=== PATIENT | female | born 1945 | race African-American/Black ===

== ENCOUNTER 2017-01-18 07:32 | Emergency (ER) | payer OTHER ==
[2017-01-18 07:42] VITALS: BP 116/64; PULSE 59; TEMP 97.8; BMI 36.9
--- NOTE | 2017-01-18 08:29 | PDOC ---
History of Present Illness - General Chief Complaint: Injury Stated Complaint: FALL 3 weeks ago, Arm pain Time Seen by Provider: 01/18/17 08:13 History Source: Patient Exam Limitations: No Limitations - History of Present Illness Initial Comments: 01/18/17 09:00 Chief complaint: Right shoulder and upper arm pain after falling 3 weeks ago out of bed History of present illness: Patient is a 71-year-old female with a history of coronary artery disease, [facility] CABG and stent placement 2012, hyperlipidemia, hypertension.Pt. is here today complaining of pain and decreased range of motion from left shoulder after falling out of bed 3 weeks ago onto her left side hitting her left upper arm with her arm flat against her body not out of reach. She reports the pain when trying to use her right arm from shoulder is a 10+. Patient has been taking acetaminophen for pain. Patient reports that at times when lying in her bed she feels pain radiating from her right shoulder down her right arm. Patient denies any loss of consciousness or or hitting her head or any other injuries after falling out of bed 3 weeks ago. Patient reports seeing her primary care provider who told her to do some exercises to improve function of her right arm at shoulder. Occurred: reports: other (3 weeks ) Pain Location: reports: upper extremity (left shoulder, upper left arm ) Method of Injury: Yes: fall (out of bed 3 weeks ago) Modifying Factors: improves with: immobilization Associated Symptoms (Fall): denies symptoms Past History - Past Medical History Allergies/Adverse Reactions: Allergies Allergy/AdvReac Type Severity Reaction Status Date / Time azithromycin [From Zithromax] Allergy Verified 01/18/17 07:42 levofloxacin [From Levaquin] Allergy Verified 01/18/17 07:42 Home Medications: Ambulatory Orders Chlorthalidone [Hygroton -] 50 mg PO DAILY 01/18/17 Clopidogrel Bisulfate [Plavix -] 75 mg PO DAILY 01/18/17 Hydralazine HCl 50 mg PO ASDIR 01/18/17 Naproxen [Naprosyn -] 500 mg PO BID 01/18/17 Triamterene/Hydrochlorothiazid [Dyazide 37.5-25 Capsule] 37.5 mg PO ASDIR Cardiac Disorders: Yes (bypass, 2 stents) HTN: Yes Hypercholesterolemia: Yes - Surgical History Cardiac Surgery: Yes (stents, bypass) - Psycho/Social/Smoking Cessation Hx Suicidal Ideation: No Smoking History: Never smoked Information on smoking cessation initiated: No Hx Alcohol Use: No Drug/Substance Use Hx: No Substance Use Type: None Review of Systems - Review of Systems Able to Perform ROS?: Yes Constitutional: No: Symptoms Reported HEENTM: No: Symptoms Reported Respiratory: No: Symptoms reported Cardiac (ROS): No: Symptoms Reported ABD/GI: No: Symptoms Reported : No: Symptoms Reported Musculoskeletal: Yes: Joint Pain (right shoulder/upper arm n), Joint Swelling ( minimal swelling right upper arm ), Other (decreased range of motion from left shoulder) Integumentary: No: Symptoms Reported (]) Neurological: No: Symptoms reported *Physical Exam - Vital Signs Last Vital Signs Temp Pulse Resp BP Pulse Ox 97.8 F 59 L 18 116/64 99 01/18/17 07:40 01/18/17 07:40 01/18/17 07:40 01/18/17 07:40 01/18/17 07:40 - Physical Exam General Appearance: Yes: Appropriately Dressed Neck: negative: Tender, Decreased range of motion, Rigidity, Tender lateral, Tender midline Respiratory/Chest: positive: Lungs Clear, Normal Breath Sounds. negative: Chest Tender, Respiratory Distress Cardiovascular: positive: Regular Rhythm, Regular Rate, S1, S2 Comments:: 01/18/17 08:59 radial pulse 4 + right Musculoskeletal: positive: Normal Inspection. negative: CVA Tenderness, CVA Tenderness (R), CVA Tenderness (L), Vertebral Tenderness Extremity: positive: Normal Capillary Refill, Normal Inspection, Tender (rt. upper lateral arm ), Swelling (minimal rt. upper arm ). negative: Normal Range of Motion (from rt. shoulder in all directions) Integumentary: positive: Normal Color Neurologic: positive: Alert, Normal Response, Respond to painful stimul (right hand, forearm, upper arm ). negative: Motor Strength 5/5 (rt. shoulder motor decreased ), Numbness, Sensory Deficit Procedures - Consent Consent obtained: From Patient - Splinting Splint Location: Right: Forearm Pre-Proc Neuro Vasc Exam: normal Hand-Made Type: shoulder immoblizer right Post-Proc Neuro Vasc Exam: normal Jah Bandage: no Sling: No Complications: No Medical Decision Making - Medical Decision Making 01/18/17 09:03 Patient is a 71-year-old female with a history of coronary artery disease, [facility] CABG and stent placement 2012, hyperlipidemia, hypertension.Pt. is here today complaining of pain and decreased range of motion from left shoulder after falling out of bed 3 weeks ago onto her left side hitting her left upper arm with her arm flat against her body not out of reach. She reports the pain when trying to use her right arm from shoulder is a 10+. Patient has been taking acetaminophen for pain. Patient reports that at times when lying in her bed she feels pain radiating from her right shoulder down her right arm. Patient denies any loss of consciousness or or hitting her head or any other injuries after falling out of bed 3 weeks ago. Patient reports seeing her primary care provider who told her to do some exercises to improve function of her right arm at shoulder. Fall Right shoulder pain with decreased range of motion PLAN: xray shoulder rt. degeenerative changes, no fracture or dislocation xray rt. humerous no fracture noted shoulder immobilizer rt. applied feels better will refer to ortho for futher nitishal 01/18/17 09:39 *DC/Admit/Observation/Transfer Diagnosis at time of Disposition: Injury, shoulder and upper arm Qualifiers: Encounter type: initial encounter Laterality: right Qualified Code(s): S49.91XA - Unspecified injury of right shoulder and upper arm, initial encounter - Discharge Dispostion Disposition: HOME Condition at time of disposition: Stable - Referrals Referrals: Mor Ndiaye MD [Primary Care Provider] - Piter Garcia MD [Staff Physician] - - Patient Instructions Additional Instructions: Follow-up with orthopedist for further evaluation as soon as possible You may wear shoulder immobilizer during the day take off at night Continue do do shoulder exercises as your primary care provider had instructed to Return to emergency room if symptoms worsen or new symptoms develop Take acetaminophen as needed as directed by sheet rock nailer for pain Patient voiced understanding of discharge instructions and all questions were answered
== END 2017-01-18 09:44 | disposition home or self-care (01) ==
LOC: JERFT 07:32
PROC: 2W38XYZ Immobilization of Right Upper Extremity using Other Device (ICD-10-PCS; principal; 2017-01-18)
DX: S49.81XA Other specified injuries of right shoulder and upper arm, initial encounter (principal); W06.XXXA Fall from bed, initial encounter; Y93.89 Activity, other specified; Y92.032 Bedroom in apartment as the place of occurrence of the external cause; Y99.8 Other external cause status; I25.10 Atherosclerotic heart disease of native coronary artery without angina pectoris; I10 Essential (primary) hypertension; Z95.1 Presence of aortocoronary bypass graft; Z95.5 Presence of coronary angioplasty implant and graft; E78.5 Hyperlipidemia, unspecified
CPT/HCPCS: 73030-TC-RT; 73060-TC-RT; 99281-25

== ENCOUNTER → 2019-07-16 | Day surgery (SDC) | payer OTHER, BC ==
--- NOTE | 2019-07-17 09:06 | OP ---
DATE OF OPERATION: 07/16/2019 PREOPERATIVE DIAGNOSIS: Abnormal left mammography. POSTOPERATIVE DIAGNOSIS: Abnormal left mammography. PROCEDURE: Left stereotactic needle biopsy with clips. SURGEON: Isabel Kasper MD ANESTHESIA: Local. COMPLICATIONS: None. This was a sterile procedure. INDICATION: Patient presented with a screening mammography that noted a new cluster of microcalcifications in the upper outer left breast. My recommendation was a needle biopsy. The procedure was discussed with all the questions answered. PROCEDURE IN DETAIL: Patient brought to [facility] in [place]. Laid prone on the [place] table. Using the cranial approach the calcifications in the upper left breast were identified. A sterile prep obtained. A target was chosen. There was a positive stroke margin. Using Betadine and 1% lidocaine a 9-gauge Suros device was used to take several cores from this area. Cores showed calcifications within them. These were handled with the usual calcification protocol. A T-shaped clip was deployed in the area. Hemostasis was assured with direct pressure. Steri-Strips were used to close the incision. She tolerated the procedure well. Left the breast imaging center in good condition. ISABEL KASPER M.D. [id number]
--- NOTE | 2019-07-17 15:46 | PATH ---
Surgical Pathology Report Patient Name: YONI PRINCE Med. Rec. #: [id number] /Age/Gender: 1945 (Age: 73) / F Account: [id number] Location: [facility] Taken: 07/16/2019 Received: 07/16/2019 Reported: 07/17/2019 Physicians: Isabel Kumar M.D. Specimen(s) Received A: LEFT BREAST SPECIMEN - WITH CALCIFICATIONS B: LEFT BREAST SPECIMEN - WITHOUT CALCIFICATIONS Clinical History Nonpalpable lesion Postoperative diagnosis: Microcalcification, suspicious Final Diagnosis A. BREAST, LEFT, WITH CALCIFICATIONS, STEREOTACTIC CORE BIOPSY: BENIGN BREAST PARENCHYMA WITH FIBROADENOMATOID CHANGES AND ASSOCIATED MICROCALCIFICATIONS. B. BREAST, LEFT, WITHOUT CALCIFICATIONS, STEREOTACTIC CORE BIOPSY: BENIGN BREAST PARENCHYMA. Electronically Signed Grace Savage M.D. Gross Description A. Received in formalin labeled "left breast with calcifications," is a 2.4 x 1.9 x 0.3 cm aggregate of multiple valenzuela-yellow, irregular to cylindrical portions of fibroadipose tissue. The formalin is filtered and the specimen is entirely submitted in one cassette. B. Received in formalin labeled "left breast without calcifications," is a 2.2 x 1.8 x 0.3 cm aggregate of multiple valenzuela-yellow, irregular to cylindrical portions of fibroadipose tissue. The formalin is filtered and the specimen is entirely submitted in one cassette. Time to formalin fixation: 5 minutes Total formalin fixation time: Approximately 6 hours. /07/16/2019 saudi/07/16/2019
== END | disposition home or self-care (01) ==
LOC: FMAMMOTONE 09:57
PROVIDERS: ATTEND Surgery
PROC: 0HBU3ZX Excision of Left Breast, Percutaneous Approach, Diagnostic (ICD-10-PCS; principal; 2019-07-16)
DX: R92.1 Mammographic calcification found on diagnostic imaging of breast (principal); N64.89 Other specified disorders of breast
CPT/HCPCS: 19081; 76098-TC-FY; 87899; A4648

== ENCOUNTER 2021-04-10 08:45 | Emergency (ER) | payer OTHER, BC ==
[2021-04-10 08:52] VITALS: BMI 33.3
[2021-04-10] MEDS ORDERED: ACETAMINOPHEN 1000 MG/100 ML VIAL (NON FORMULARY) IVPB ONE (10:22)
[2021-04-10] MEDS ORDERED: METHOCARBAMOL 500 MG TABLET PO ONE (10:22)
[2021-04-10] MEDS ORDERED: ACETAMINOPHEN INJECTION 100 ML IVPB ONE (10:27)
[2021-04-10] MEDS ORDERED: METHOCARBAMOL 500 MG TABLET ONE (10:27)
[2021-04-10 10:34] LABS: BASO % 0.6 % (0-2.0); EOS % 3.8 % (0-4.5); HEMATOCRIT 28.8 % (32.4-45.2); HEMOGLOBIN 9.4 GM/dL (10.7-15.3); LYMPH % 25.2 % (8-40); MCH 26.4 pg (25.7-33.7); MCHC 32.5 g/dl (32.0-36.0); MEAN CELL VOLUME 81.2 fl (80-96); MEAN PLT VOLUME 10.4 fl (7.5-11.1); MONO % 8.9 % (3.8-10.2); NEUT % 61.5 % (42.8-82.8); PLATELET COUNT 145 10^3/uL (134-434); RBC 3.55 M/mm3 (3.60-5.2); RDW 17.4 % (11.6-15.6)
[2021-04-10 10:54] LABS: CALCIUM 7.9 mg/dL (8.5-10.1)
[2021-04-10 10:55] LABS: BLOOD UREA NITROGEN 26.7 mg/dL (7-18)
[2021-04-10 10:58] LABS: CREATININE 1.3 mg/dL (0.55-1.3)
[2021-04-10 10:59] LABS: BILIRUBIN,TOTAL 0.4 mg/dL (0.2-1); TOT PROT 6.8 g/dl (6.4-8.2)
[2021-04-10 12:35] LABS: EPI CELLS 4 /uL (0-25.1); HYALINE CASTS 0 /uL (0-3.1); URINE APPEARANCE CLEAR; URINE BACTERIA 2940 /uL (0-1359); URINE BILIRUBIN NEGATIVE (NEGATIVE); URINE COLOR YELLOW; URINE GLUCOSE (UA) NEGATIVE (NEGATIVE); URINE KETONE NEGATIVE (NEGATIVE); URINE LEUK ESTERASE 1+ (NEGATIVE); URINE NITRITE NEGATIVE (NEGATIVE); URINE PROTEIN NEGATIVE (NEGATIVE); URINE UROBILINOGEN 0.2 mg/dL (0.2-1.0); URINE WBC 18 /uL (0-25.8)
[2021-04-10] MEDS ORDERED: CEFTRIAXONE 1,000 MG in DEXTROSE 5%-WATER - 50 ML IVPB ONE (12:45)
[2021-04-10] MEDS ORDERED: CEFTRIAXONE 1 GM/50 ML BAG ONE (12:52)
[2021-04-10 16:30] LABS: URINE RBC 122 /uL (0-23.9)
[2021-04-10] MEDS ORDERED: LACTATED RINGERS SOLUTION 1,000 ML/1,000 ML INFUS.BAG IV SCH (17:15)
[2021-04-10 18:49] VITALS: BP 148/73; PULSE 57; TEMP 97.8
== END 2021-04-10 18:59 | disposition short-term general hospital (02) ==
LOC: JER 08:45
PROC: 3E033GC Introduction of Other Therapeutic Substance into Peripheral Vein, Percutaneous Approach (ICD-10-PCS; principal; 2021-04-10)
DX: R10.9 Unspecified abdominal pain (principal); I51.3 Intracardiac thrombosis, not elsewhere classified; K59.00 Constipation, unspecified; R79.89 Other specified abnormal findings of blood chemistry
CPT/HCPCS: 36415; 71275-TC; 74019-TC-FY; 74174-TC; 76775-TC; 80053; 81003; 82550; 83690; 84484; 85025; 87086; 87186; 93005; 93010; 96361; 96365; 96375; 99285-25; C9803; J0131; Q9967; U0003; U0005

== ENCOUNTER 2024-03-01 11:44 | Emergency (ER) | payer OTHER, BC ==
[2024-03-01 12:01] VITALS: RESP 18; TEMP 98.2; BMI 27.4
[2024-03-01 13:37] LABS: BASO % 0.7 % (0-2.0); EOS % 1.8 % (0-4.5); HEMATOCRIT 25.7 % (32.4-45.2); HEMOGLOBIN 8.2 GM/dL (10.7-15.3); LYMPH % 20.4 % (8-40); MCH 25.1 pg (25.7-33.7); MEAN CELL VOLUME 78.5 fl (80-96); MEAN PLT VOLUME 8.5 fl (7.5-11.1); MONO % 10.9 % (3.8-10.2); NEUT % 66.2 % (42.8-82.8); PLATELET COUNT 265 10^3/uL (134-434); RBC 3.27 M/mm3 (3.60-5.2); RDW 18.4 % (11.6-15.6); WHITE BLOOD COUNT 3.8 K/mm3 (4.0-10.0)
[2024-03-01 13:45] LABS: INR 1.67 (0.83-1.09); PROTHROMBIN TIME (PATIENT) 18.9 SEC (9.7-13.0)
[2024-03-01 13:48] LABS: ACTIVATED PTT 36.2 SECONDS (25.2-36.5)
[2024-03-01 14:03] LABS: POTASSIUM 4.4 mmol/L (3.5-5.1)
[2024-03-01 14:05] LABS: ALBUMIN 2.5 g/dl (3.4-5.0); BLOOD UREA NITROGEN 28.2 mg/dL (7-18); CALCIUM 8.7 mg/dL (8.5-10.1)
[2024-03-01 14:09] LABS: CREATININE 1.3 mg/dL (0.55-1.3)
[2024-03-01 14:10] LABS: BILIRUBIN,TOTAL 0.5 mg/dL (0.2-1)
[2024-03-01 21:12] VITALS: BP 135/72; PULSE 75
== END 2024-03-01 22:23 | disposition home or self-care (01) ==
LOC: JER 11:44
DX: R51.9 Headache, unspecified (principal); R05.9 Cough, unspecified; R53.1 Weakness; M79.10 Myalgia, unspecified site; Z20.822 Contact with and (suspected) exposure to COVID-19
CPT/HCPCS: 0241U-QW; 36415; 80053; 85025; 85610; 85730; 86850; 86900; 86901; 99283-25

== ENCOUNTER 2024-03-07 17:07 | Inpatient (IN) | payer OTHER, BC ==
[2024-03-07 17:56] VITALS: BMI 27.4
[2024-03-07 20:19] LABS: BASO % 0.9 % (0-2.0); EOS % 1.9 % (0-4.5); HEMATOCRIT 21.9 % (32.4-45.2); LYMPH % 17.3 % (8-40); MCH 24.9 pg (25.7-33.7); MEAN PLT VOLUME 8.5 fl (7.5-11.1); MONO % 9.7 % (3.8-10.2); NEUT % 70.2 % (42.8-82.8); PLATELET COUNT 333 10^3/uL (134-434); RBC 2.82 M/mm3 (3.60-5.2); RDW 18.3 % (11.6-15.6); WHITE BLOOD COUNT 4.5 K/mm3 (4.0-10.0)
[2024-03-07 20:26] LABS: INR 1.66 (0.83-1.09); PROTHROMBIN TIME (PATIENT) 18.8 SEC (9.7-13.0)
[2024-03-07 20:28] LABS: ACTIVATED PTT 32.9 SECONDS (25.2-36.5)
[2024-03-07 20:49] LABS: ALBUMIN 2.6 g/dl (3.4-5.0); CALCIUM 8.6 mg/dL (8.5-10.1)
[2024-03-07 20:50] LABS: BLOOD UREA NITROGEN 39.6 mg/dL (7-18)
[2024-03-07 20:53] LABS: CREATININE 1.6 mg/dL (0.55-1.3)
[2024-03-07 20:54] LABS: BILIRUBIN,TOTAL 0.4 mg/dL (0.2-1); TOT PROT 6.1 g/dl (6.4-8.2)
[2024-03-07 21:41] LABS: HIV INTERPRETATION NEGATIVE (NEGATIVE)
[2024-03-08] MEDS: ACETAMINOPHEN 325 MG TABLET (FP) PO SCH (05:15)
[2024-03-08] MEDS ORDERED: FUROSEMIDE 20 MG TABLET (FP) PO SCH (06:00)
[2024-03-08 08:39] LABS: POTASSIUM 4.7 mmol/L (3.5-5.1)
[2024-03-08 08:40] LABS: BASO % 0.6 % (0-2.0); EOS % 1.6 % (0-4.5); HEMATOCRIT 20.3 % (32.4-45.2); LYMPH % 19.9 % (8-40); MCH 24.7 pg (25.7-33.7); MCHC 31.7 g/dl (32.0-36.0); MEAN CELL VOLUME 78.1 fl (80-96); MEAN PLT VOLUME 8.9 fl (7.5-11.1); MONO % 9.2 % (3.8-10.2); NEUT % 68.7 % (42.8-82.8); PLATELET COUNT 308 10^3/uL (134-434); RDW 18.7 % (11.6-15.6); WHITE BLOOD COUNT 4.7 K/mm3 (4.0-10.0)
[2024-03-08 08:44] LABS: CALCIUM 8.6 mg/dL (8.5-10.1)
[2024-03-08 08:45] LABS: ALBUMIN 2.5 g/dl (3.4-5.0); BLOOD UREA NITROGEN 41.5 mg/dL (7-18); HEMOGLOBIN 6.4 GM/dL (10.7-15.3); MAGNESIUM 2.1 mg/dL (1.8-2.4)
[2024-03-08 08:48] LABS: CREATININE 1.6 mg/dL (0.55-1.3); PHOSPHOROUS 4.2 mg/dL (2.5-4.9)
[2024-03-08 08:49] LABS: BILIRUBIN,TOTAL 0.6 mg/dL (0.2-1); TOT PROT 5.7 g/dl (6.4-8.2)
[2024-03-08] MEDS: GABAPENTIN 100 MG CAPSULE PO SCH (09:41)
[2024-03-08] MEDS: FOLIC ACID 1 MG TABLET (FP) PO SCH (09:41)
[2024-03-08] MEDS: metoPROLOL SUCCINATE 25 MG TAB.SR.24H (FP) PO SCH (09:41)
[2024-03-08] MEDS: RANOLAZINE E.R. 500 MG TABLET (FP) PO SCH (09:41)
[2024-03-08] MEDS: CLOPIDOGREL BISULFATE 75 MG TABLET (FP) PO SCH (09:41)
[2024-03-08] MEDS ORDERED: VALSARTAN 40 MG TABLET PO SCH (10:00)
[2024-03-08 15:12] LABS: EPI CELLS >36 /uL (0-25.1); HYALINE CASTS 5 /uL (0-3.1); PH,URINE 8.5 (5.0-8.0); URINE APPEARANCE TURBID; URINE BACTERIA >9,000 /uL (0-1359); URINE BILIRUBIN NEGATIVE (NEGATIVE); URINE COLOR YELLOW; URINE GLUCOSE (UA) NEGATIVE (NEGATIVE); URINE KETONE NEGATIVE (NEGATIVE); URINE LEUK ESTERASE 3+ (NEGATIVE); URINE NITRITE NEGATIVE (NEGATIVE); URINE PROTEIN 2+ (NEGATIVE); URINE WBC 907 /uL (0-25.8)
[2024-03-08 15:32] LABS: URINE RBC 94 /uL (0-23.9); YEAST NONE SEEN (NEGATIVE)
[2024-03-08 19:19] LABS: HEMOGLOBIN 7.4 GM/dL (10.7-15.3); MCH 25.4 pg (25.7-33.7); MCHC 32.2 g/dl (32.0-36.0); MEAN PLT VOLUME 8.9 fl (7.5-11.1); PLATELET COUNT 281 10^3/uL (134-434); RBC 2.91 M/mm3 (3.60-5.2); RDW 17.8 % (11.6-15.6); WHITE BLOOD COUNT 4.8 K/mm3 (4.0-10.0)
[2024-03-08] MEDS: ATORVASTATIN CA 80 MG TABLET (FP) PO SCH (22:02)
[2024-03-10 08:07] LABS: BASO % 0.6 % (0-2.0); EOS % 2.7 % (0-4.5); HEMATOCRIT 22.9 % (32.4-45.2); HEMOGLOBIN 7.4 GM/dL (10.7-15.3); LYMPH % 17.2 % (8-40); MCH 25.4 pg (25.7-33.7); MCHC 32.4 g/dl (32.0-36.0); MEAN CELL VOLUME 78.3 fl (80-96); MEAN PLT VOLUME 8.5 fl (7.5-11.1); MONO % 10.9 % (3.8-10.2); NEUT % 68.6 % (42.8-82.8); PLATELET COUNT 276 10^3/uL (134-434); RBC 2.93 M/mm3 (3.60-5.2); RDW 17.7 % (11.6-15.6); WHITE BLOOD COUNT 4.3 K/mm3 (4.0-10.0)
[2024-03-10 08:22] LABS: POTASSIUM 4.9 mmol/L (3.5-5.1)
[2024-03-10 08:29] LABS: CALCIUM 8.3 mg/dL (8.5-10.1)
[2024-03-10 08:30] LABS: ALBUMIN 2.4 g/dl (3.4-5.0); BLOOD UREA NITROGEN 37.8 mg/dL (7-18); MAGNESIUM 2.2 mg/dL (1.8-2.4)
[2024-03-10 08:33] LABS: CREATININE 1.5 mg/dL (0.55-1.3); PHOSPHOROUS 4.1 mg/dL (2.5-4.9)
[2024-03-10 08:34] LABS: BILIRUBIN,TOTAL 0.5 mg/dL (0.2-1)
[2024-03-10 08:35] LABS: TOT PROT 5.5 g/dl (6.4-8.2)
[2024-03-10] MEDS: POLYETHYLENE GLYCOL (HEALTHYLAX) 3350 17 GM PACKET PO SCH (14:36)
[2024-03-10] MEDS: IRON SUCROSE INJECTION 200 MG in SODIUM CHLORIDE 100 ML IVPB ONE (15:43)
[2024-03-10] MEDS: BISACODYL 5 MG TABLET.DR (FP) PO ONE (16:29)
[2024-03-10 17:47] LABS: HEMATOCRIT 27.5 % (32.4-45.2); HEMOGLOBIN 8.9 GM/dL (10.7-15.3); MCHC 32.3 g/dl (32.0-36.0); MEAN CELL VOLUME 80.6 fl (80-96); MEAN PLT VOLUME 8.8 fl (7.5-11.1); PLATELET COUNT 266 10^3/uL (134-434); RBC 3.41 M/mm3 (3.60-5.2); RDW 17.9 % (11.6-15.6); WHITE BLOOD COUNT 5.3 K/mm3 (4.0-10.0)
[2024-03-10] MEDS: TRIMETHOBENZAMIDE HCL 200MG/2ML INJ IM ONE (22:10)
[2024-03-11 07:01] LABS: HEMATOCRIT 23.8 % (32.4-45.2); HEMOGLOBIN 7.9 GM/dL (10.7-15.3); MCH 26.4 pg (25.7-33.7); MEAN PLT VOLUME 8.7 fl (7.5-11.1); PLATELET COUNT 248 10^3/uL (134-434); RBC 2.97 M/mm3 (3.60-5.2); RDW 17.4 % (11.6-15.6); WHITE BLOOD COUNT 4.8 K/mm3 (4.0-10.0)
[2024-03-11 07:19] LABS: POTASSIUM 4.8 mmol/L (3.5-5.1)
[2024-03-11 07:24] LABS: CALCIUM 8.7 mg/dL (8.5-10.1)
[2024-03-11 07:25] LABS: ALBUMIN 2.4 g/dl (3.4-5.0); BLOOD UREA NITROGEN 34.8 mg/dL (7-18)
[2024-03-11 07:27] LABS: CREATININE 1.3 mg/dL (0.55-1.3)
[2024-03-11 07:30] LABS: TOT PROT 5.4 g/dl (6.4-8.2)
[2024-03-11] MEDS: FERROUS SO4 325 MG TABLET (FP) PO SCH (07:50)
[2024-03-11] MEDS: ASCORBIC ACID 500 MG TABLET (FP) PO SCH (09:30)
[2024-03-11] MEDS ORDERED: ONDANSETRON 4 MG/2 ML VIAL IVPUSH PRN (11:14)
[2024-03-11] MEDS: MAGNESIUM CITRATE 300 ML BOTTLE PO SCH (11:34)
[2024-03-12 07:48] LABS: HEMATOCRIT 24.7 % (32.4-45.2); MCH 26.4 pg (25.7-33.7); MCHC 32.5 g/dl (32.0-36.0); MEAN CELL VOLUME 81.1 fl (80-96); MEAN PLT VOLUME 8.7 fl (7.5-11.1); PLATELET COUNT 248 10^3/uL (134-434); RBC 3.05 M/mm3 (3.60-5.2); RDW 18.5 % (11.6-15.6); WHITE BLOOD COUNT 4.1 K/mm3 (4.0-10.0)
[2024-03-12 08:08] LABS: POTASSIUM 4.6 mmol/L (3.5-5.1)
[2024-03-12 08:12] LABS: BLOOD UREA NITROGEN 30.2 mg/dL (7-18); CALCIUM 8.8 mg/dL (8.5-10.1)
[2024-03-12 08:15] LABS: CREATININE 1.2 mg/dL (0.55-1.3)
[2024-03-13 13:19] LABS: EPI CELLS >36 /uL (0-25.1); HYALINE CASTS 1 /uL (0-3.1); PH,URINE 7.5 (5.0-8.0); URINE APPEARANCE CLOUDY; URINE BACTERIA >9,000 /uL (0-1359); URINE BILIRUBIN NEGATIVE (NEGATIVE); URINE COLOR YELLOW; URINE GLUCOSE (UA) NEGATIVE (NEGATIVE); URINE KETONE TRACE (NEGATIVE); URINE LEUK ESTERASE TRACE (NEGATIVE); URINE NITRITE NEGATIVE (NEGATIVE); URINE PROTEIN 1+ (NEGATIVE); URINE RBC 11 /uL (0-23.9); URINE WBC 17 /uL (0-25.8)
[2024-03-14 07:35] LABS: BASO % 0.8 % (0-2.0); EOS % 2.5 % (0-4.5); HEMATOCRIT 22.6 % (32.4-45.2); HEMOGLOBIN 7.5 GM/dL (10.7-15.3); MCH 26.9 pg (25.7-33.7); MCHC 32.9 g/dl (32.0-36.0); MEAN CELL VOLUME 81.6 fl (80-96); MEAN PLT VOLUME 8.7 fl (7.5-11.1); MONO % 9.3 % (3.8-10.2); NEUT % 69.4 % (42.8-82.8); PLATELET COUNT 239 10^3/uL (134-434); RBC 2.77 M/mm3 (3.60-5.2); RDW 18.9 % (11.6-15.6); WHITE BLOOD COUNT 4.1 K/mm3 (4.0-10.0)
[2024-03-14 07:50] LABS: POTASSIUM 4.8 mmol/L (3.5-5.1)
[2024-03-14 08:01] LABS: ALBUMIN 2.5 g/dl (3.4-5.0); BLOOD UREA NITROGEN 30.7 mg/dL (7-18); CALCIUM 8.6 mg/dL (8.5-10.1)
[2024-03-14 08:04] LABS: BILIRUBIN,TOTAL 0.7 mg/dL (0.2-1)
[2024-03-14 08:05] LABS: CREATININE 1.3 mg/dL (0.55-1.3)
[2024-03-14 08:06] LABS: TOT PROT 5.7 g/dl (6.4-8.2)
[2024-03-14] MEDS: CEFTRIAXONE 1 GM in DEXTROSE 5%-WATER - 50 ML IVPB SCH (09:32)
[2024-03-14] MEDS: hydrOXYzine PAMOATE 25 MG CAPSULE (FP) PO ONE (21:45)
[2024-03-14] MEDS: MELATONIN 5 MG TABLETS PO ONE (21:45)
[2024-03-15 07:53] LABS: HEMOGLOBIN 7.1 GM/dL (10.7-15.3); MCH 26.5 pg (25.7-33.7); MCHC 32.1 g/dl (32.0-36.0); MEAN CELL VOLUME 82.6 fl (80-96); MEAN PLT VOLUME 8.4 fl (7.5-11.1); PLATELET COUNT 240 10^3/uL (134-434); RBC 2.66 M/mm3 (3.60-5.2); RDW 18.8 % (11.6-15.6); WHITE BLOOD COUNT 4.2 K/mm3 (4.0-10.0)
[2024-03-15 08:29] LABS: POTASSIUM 4.6 mmol/L (3.5-5.1)
[2024-03-15 08:33] LABS: CALCIUM 8.9 mg/dL (8.5-10.1)
[2024-03-15 08:34] LABS: ALBUMIN 2.5 g/dl (3.4-5.0); BLOOD UREA NITROGEN 31.2 mg/dL (7-18)
[2024-03-15 08:35] LABS: MAGNESIUM 2.3 mg/dL (1.8-2.4)
[2024-03-15 08:36] LABS: PHOSPHOROUS 4.1 mg/dL (2.5-4.9)
[2024-03-15 08:37] LABS: CREATININE 1.4 mg/dL (0.55-1.3)
[2024-03-15 08:38] LABS: BILIRUBIN,TOTAL 0.6 mg/dL (0.2-1); TOT PROT 5.5 g/dl (6.4-8.2)
[2024-03-15] MEDS: SODIUM CHLORIDE 1,000 ML IV SCH (11:12)
[2024-03-15] MEDS: ERTAPENEM SODIUM 1 GM in SODIUM CHLORIDE 50 ML IVPB SCH (15:00)
[2024-03-16 08:25] LABS: POTASSIUM 4.6 mmol/L (3.5-5.1)
[2024-03-16 08:27] LABS: HEMATOCRIT 22.7 % (32.4-45.2); HEMOGLOBIN 7.3 GM/dL (10.7-15.3); MCH 26.7 pg (25.7-33.7); MEAN CELL VOLUME 83.5 fl (80-96); MEAN PLT VOLUME 9.2 fl (7.5-11.1); PLATELET COUNT 200 10^3/uL (134-434); RBC 2.72 M/mm3 (3.60-5.2); RDW 19.6 % (11.6-15.6); WHITE BLOOD COUNT 3.6 K/mm3 (4.0-10.0)
[2024-03-16 08:42] LABS: ALBUMIN 2.4 g/dl (3.4-5.0); CALCIUM 8.6 mg/dL (8.5-10.1)
[2024-03-16 08:43] LABS: BLOOD UREA NITROGEN 26.6 mg/dL (7-18); MAGNESIUM 2.1 mg/dL (1.8-2.4)
[2024-03-16 08:45] LABS: CREATININE 1.3 mg/dL (0.55-1.3)
[2024-03-16 08:47] LABS: BILIRUBIN,TOTAL 0.6 mg/dL (0.2-1); TOT PROT 5.6 g/dl (6.4-8.2)
[2024-03-16] MEDS: POLYETHYLENE GLYCOL (HEALTHYLAX) 3350 17 GM PACKET PO SCH (13:59)
[2024-03-16 18:05] VITALS: RESP 18
[2024-03-17 07:58] LABS: HEMATOCRIT 24.5 % (32.4-45.2); HEMOGLOBIN 7.7 GM/dL (10.7-15.3); MCH 26.4 pg (25.7-33.7); MCHC 31.5 g/dl (32.0-36.0); MEAN CELL VOLUME 83.6 fl (80-96); MEAN PLT VOLUME 9.2 fl (7.5-11.1); PLATELET COUNT 226 10^3/uL (134-434); RBC 2.93 M/mm3 (3.60-5.2); RDW 19.9 % (11.6-15.6); WHITE BLOOD COUNT 4.1 K/mm3 (4.0-10.0)
[2024-03-17 08:14] LABS: POTASSIUM 5.1 mmol/L (3.5-5.1)
[2024-03-17 08:19] LABS: ALBUMIN 2.3 g/dl (3.4-5.0); CALCIUM 8.7 mg/dL (8.5-10.1); MAGNESIUM 2.1 mg/dL (1.8-2.4)
[2024-03-17 08:20] LABS: BLOOD UREA NITROGEN 26.5 mg/dL (7-18)
[2024-03-17 08:22] LABS: CREATININE 1.2 mg/dL (0.55-1.3)
[2024-03-17 08:24] LABS: BILIRUBIN,TOTAL 0.7 mg/dL (0.2-1); TOT PROT 5.4 g/dl (6.4-8.2)
[2024-03-17] MEDS: POLYETHYLENE GLYCOL (HEALTHYLAX) 3350 17 GM PACKET PO SCH (09:27)
[2024-03-17] MEDS: IRON SUCROSE INJECTION 200 MG in SODIUM CHLORIDE 100 ML IVPB ONE (11:33)
[2024-03-17] MEDS: AMOX TR/POT CLAV 875MG/125MG TABLETS (FP) PO SCH (17:14)
[2024-03-17] MEDS ORDERED: AMOX TR/POT CLAV 875MG/125MG TABLETS (FP) PO SCH (17:30)
[2024-03-17] MEDS: ATORVASTATIN CA 40 MG TABLET (FP) PO SCH (21:54)
[2024-03-18 03:13] VITALS: BP 122/79; PULSE 91; TEMP 98
== END 2024-03-18 02:00 | DRG 812 ==
LOC: JER 17:07 → JERBED 03-08 00:46 → OBSVTOIN 03-08 00:47 → J4W 03-08 03:52
PROVIDERS: ADMIT Internal Medicine; ATTEND Student in an Organized Health Care Education/Training Program
PROC: 30233N1 Transfusion of Nonautologous Red Blood Cells into Peripheral Vein, Percutaneous Approach (ICD-10-PCS; principal; 2024-03-08)
PROC: 05HB33Z Insertion of Infusion Device into Right Basilic Vein, Percutaneous Approach (ICD-10-PCS; 2024-03-15)
DX: D50.9 Iron deficiency anemia, unspecified (principal); I48.92 Unspecified atrial flutter; I13.0 Hypertensive heart and chronic kidney disease with heart failure and stage 1 through stage 4 chronic kidney disease, or unspecified chronic kidney disease; N39.0 Urinary tract infection, site not specified; M62.82 Rhabdomyolysis; I50.22 Chronic systolic (congestive) heart failure; N17.9 Acute kidney failure, unspecified; E78.5 Hyperlipidemia, unspecified; I25.10 Atherosclerotic heart disease of native coronary artery without angina pectoris; I48.91 Unspecified atrial fibrillation; I73.9 Peripheral vascular disease, unspecified; F03.90 Unspecified dementia, unspecified severity, without behavioral disturbance, psychotic disturbance, mood disturbance, and anxiety; N18.30 Chronic kidney disease, stage 3 unspecified; K59.00 Constipation, unspecified; K40.90 Unilateral inguinal hernia, without obstruction or gangrene, not specified as recurrent; K80.20 Calculus of gallbladder without cholecystitis without obstruction; Z95.5 Presence of coronary angioplasty implant and graft; R74.01 Elevation of levels of liver transaminase levels
CPT/HCPCS: 0241U-QW; 36415; 36430; 74176-TC; 74250-TC-FY; 76700-TC; 80048; 80053; 81003; 82272; 82550; 82553; 82728; 83540; 83550; 83735; 83880; 84100; 84466; 84484; 85025; 85027; 85045; 85610; 85730; 86705; 86707; 86708; 86803; 86850; 86900; 86901; 86922; 87086; 87186; 87340; 87350; 87389; 87517; 87522; 93005; 93010; 93306-TC; 97116-GP; 97162-GP; 99285-25; G0378; J1756; P9038; P9058

== ENCOUNTER 2024-03-20 15:15 | Observation (INO) | payer OTHER, BC ==
[2024-03-20 19:12] LABS: BASO % 0.6 % (0-2.0); EOS % 3.2 % (0-4.5); HEMATOCRIT 22.2 % (32.4-45.2); LYMPH % 17.1 % (8-40); MCH 26.2 pg (25.7-33.7); MCHC 31.6 g/dl (32.0-36.0); MEAN CELL VOLUME 82.9 fl (80-96); MEAN PLT VOLUME 8.1 fl (7.5-11.1); NEUT % 70.1 % (42.8-82.8); PLATELET COUNT 254 10^3/uL (134-434); RBC 2.68 M/mm3 (3.60-5.2); RDW 20.4 % (11.6-15.6); WHITE BLOOD COUNT 3.6 K/mm3 (4.0-10.0)
[2024-03-20 19:47] LABS: POTASSIUM 4.4 mmol/L (3.5-5.1)
[2024-03-20 19:50] LABS: BLOOD UREA NITROGEN 20.6 mg/dL (7-18); CALCIUM 9.1 mg/dL (8.5-10.1)
[2024-03-20 19:52] LABS: ALBUMIN 2.8 g/dl (3.4-5.0)
[2024-03-20 19:54] LABS: CREATININE 1.4 mg/dL (0.55-1.3)
[2024-03-20 19:55] LABS: BILIRUBIN,TOTAL 0.6 mg/dL (0.2-1); TOT PROT 6.2 g/dl (6.4-8.2)
[2024-03-21] MEDS ORDERED: SENNOSIDES 8.6MG TABLET (FP) PO PRN (03:28)
[2024-03-21] MEDS ORDERED: FUROSEMIDE 20 MG TABLET (FP) ONE ×3 (06:15→14:20)
[2024-03-21] MEDS ORDERED: FERROUS SO4 325 MG TABLET (FP) ONE ×3 (06:15→22:27)
[2024-03-21] MEDS: FERROUS SO4 325 MG TABLET (FP) PO SCH (06:22)
[2024-03-21] MEDS: FUROSEMIDE 20 MG TABLET (FP) PO SCH (06:22)
[2024-03-21 06:43] LABS: BASO % 0.7 % (0-2.0); EOS % 2.3 % (0-4.5); HEMATOCRIT 22.6 % (32.4-45.2); HEMOGLOBIN 7.2 GM/dL (10.7-15.3); LYMPH % 21.3 % (8-40); MCH 26.5 pg (25.7-33.7); MCHC 32.1 g/dl (32.0-36.0); MEAN CELL VOLUME 82.8 fl (80-96); MEAN PLT VOLUME 8.5 fl (7.5-11.1); MONO % 9.3 % (3.8-10.2); NEUT % 66.4 % (42.8-82.8); PLATELET COUNT 221 10^3/uL (134-434); RBC 2.73 M/mm3 (3.60-5.2); RDW 20.1 % (11.6-15.6); WHITE BLOOD COUNT 3.9 K/mm3 (4.0-10.0)
[2024-03-21 06:51] LABS: INR 1.17 (0.83-1.09); PROTHROMBIN TIME (PATIENT) 13.2 SEC (9.7-13.0)
[2024-03-21 06:54] LABS: ACTIVATED PTT 32.6 SECONDS (25.2-36.5)
[2024-03-21 06:58] LABS: POTASSIUM 4.5 mmol/L (3.5-5.1)
[2024-03-21 07:02] LABS: CALCIUM 8.8 mg/dL (8.5-10.1)
[2024-03-21 07:03] LABS: BLOOD UREA NITROGEN 21.7 mg/dL (7-18)
[2024-03-21 07:06] LABS: CREATININE 1.3 mg/dL (0.55-1.3)
[2024-03-21] MEDS ORDERED: POLYETHYLENE GLYCOL (HEALTHYLAX) 3350 17 GM PACKET ONE ×2 (09:00→22:27)
[2024-03-21] MEDS ORDERED: PANTOPRAZOLE 20 MG TABLET PO ONE (09:01)
[2024-03-21] MEDS ORDERED: AMOX TR/POT CLAV 875MG/125MG TABLETS (FP) ONE ×2 (09:01→18:23)
[2024-03-21] MEDS ORDERED: MAGNESIUM HYDROX 2400MG/30ML ORAL SUSPENSION 30 ML CUP ONE (09:01)
[2024-03-21] MEDS ORDERED: ASCORBIC ACID 500 MG TABLET (FP) ONE (09:01)
[2024-03-21] MEDS ORDERED: FOLIC ACID 1 MG TABLET (FP) ONE (09:01)
[2024-03-21] MEDS ORDERED: RANOLAZINE E.R. 500 MG TABLET (FP) ONE ×2 (09:02→22:28)
[2024-03-21] MEDS ORDERED: GABAPENTIN 100 MG CAPSULE ONE ×3 (09:02→22:29)
[2024-03-21] MEDS: POLYETHYLENE GLYCOL (HEALTHYLAX) 3350 17 GM PACKET PO SCH (09:11)
[2024-03-21] MEDS: AMOX TR/POT CLAV 875MG/125MG TABLETS (FP) PO SCH (09:11)
[2024-03-21] MEDS: FOLIC ACID 1 MG TABLET (FP) PO SCH (09:11)
[2024-03-21] MEDS: GABAPENTIN 100 MG CAPSULE PO SCH (09:12)
[2024-03-21] MEDS: ASCORBIC ACID 500 MG TABLET (FP) PO SCH (09:12)
[2024-03-21] MEDS: RANOLAZINE E.R. 500 MG TABLET (FP) PO SCH (09:12)
[2024-03-21] MEDS: PANTOPRAZOLE 20 MG TABLET PO SCH (09:12)
[2024-03-21] MEDS: MAGNESIUM HYDROX 2400MG/30ML ORAL SUSPENSION 30 ML CUP PO SCH (09:12)
[2024-03-21] MEDS: IRON SUCROSE INJECTION 200 MG in SODIUM CHLORIDE 100 ML IVPB ONE (12:24)
[2024-03-21 15:12] LABS: ANISOCYTOSIS 3+; MACROCYTOSIS 0; OVALOCYTE 1+; TARGET CELLS 2+
[2024-03-21] MEDS ORDERED: ATORVASTATIN CA 40 MG TABLET (FP) ONE (22:27)
[2024-03-21] MEDS ORDERED: MAG HYDROX/AL HYDROX/SIMETH 30 ML UNIT-DOSE CUP ONE (22:28)
[2024-03-21] MEDS: ATORVASTATIN CA 40 MG TABLET (FP) PO SCH (22:47)
[2024-03-22 05:06] VITALS: RESP 18
[2024-03-22 05:34] VITALS: BMI 25.4
[2024-03-22 09:24] LABS: HEMATOCRIT 26.6 % (32.4-45.2); HEMOGLOBIN 8.2 G/dL (10.7-15.3); MCH 26.2 pg (25.7-33.7); MCHC 30.8 g/dl (32.0-36.0); MEAN CELL VOLUME 84.9 fl (80-96); MEAN PLT VOLUME 9.6 fl (7.5-11.1); PLATELET COUNT 225.4 10^3/uL (134-434); RBC 3.13 10^6/uL (3.60-5.2); RDW 21.4 % (11.6-15.6); WHITE BLOOD COUNT 3.2 10^3/uL (4.0-10.8)
[2024-03-22 11:41] LABS: ALBUMIN 3.2 g/dl (3.4-5.0); CREATININE 1.3 mg/dl (0.6-1.3); POTASSIUM 4.7 mmol/L (3.5-5.1); TOT PROT 6.1 g/dl (6.4-8.2)
[2024-03-22 14:32] VITALS: PULSE 76; TEMP 97.5
[2024-03-22 14:43] VITALS: BP 114/68
== END 2024-03-22 18:40 ==
LOC: JER 15:15 → JERBED 21:57 → FM/S 03-22 01:00
PROVIDERS: ADMIT Student in an Organized Health Care Education/Training Program; ATTEND Internal Medicine
PROC: 30233N1 Transfusion of Nonautologous Red Blood Cells into Peripheral Vein, Percutaneous Approach (ICD-10-PCS; principal; 2024-03-20)
PROC: 3E033GC Introduction of Other Therapeutic Substance into Peripheral Vein, Percutaneous Approach (ICD-10-PCS; 2024-03-20)
DX: D64.9 Anemia, unspecified (principal); I11.9 Hypertensive heart disease without heart failure; E78.5 Hyperlipidemia, unspecified; K21.00 Gastro-esophageal reflux disease with esophagitis, without bleeding; I48.91 Unspecified atrial fibrillation; Z86.711 Personal history of pulmonary embolism; I27.20 Pulmonary hypertension, unspecified; I12.9 Hypertensive chronic kidney disease with stage 1 through stage 4 chronic kidney disease, or unspecified chronic kidney disease; N18.9 Chronic kidney disease, unspecified; Z87.19 Personal history of other diseases of the digestive system; F32.9 Major depressive disorder, single episode, unspecified; K59.00 Constipation, unspecified
CPT/HCPCS: 36415; 36430; 80048; 80053; 82272; 82525; 82728; 83615; 83883; 84155; 84165; 84443; 84630; 85025; 85027; 85045; 85610; 85730; 86850; 86880; 86900; 86901; 86922; 96365; 99285-25; G0378; J1756; P9058